=== PATIENT | male | born 1955 | race Caucasian/White ===

== ENCOUNTER 2022-03-04 16:11 | Inpatient (IN) | payer OTHER ==
[~2022-03-04] VITALS: Ht 175.2 cm; Wt 76.2 kg
[2022-03-04 16:11] VITALS: BP 148/96
[~2022-03-04 16:11] MED LIST: BUSPAR5 MG PO; MIRTAZAPINE15 M2 PO; NATURE'S BLEND F1 MG PO; NATURE'S BLEND100 M2 PO; RIVASTIGMINE1 EACH T; SERTRALINE HYDR25 MG PO; TIZANIDINE HCL4 MG PO
[2022-03-04 17:05] LABS: BASO # 0.1 10*3/uL (0.0-0.1); EOS # 0.2 10*3/uL (0.0-0.4); EOS % 1.7 % (1.0-4.0); HEMATOCRIT 43.6 % (42.0-52.0); LYMPH # 1.1 10*3/uL (1.3-4.4); LYMPH % 12.2 % (27.0-41.0); MEAN CELL VOLUME 100.5 fl (80.0-94.0); MEAN CORPUSCULAR HGB 33.2 pg (27.0-31.0); MEAN PLATELET VOLUME 9.9 fl (9.6-12.3); MONO # 0.7 10*3/uL (0.1-1.0); MONO % 7.8 % (3.0-9.0); NEUT # 7.1 10*3/uL (2.3-7.9); NEUT % 76.8 % (47.0-73.0); PLATELET COUNT AUTOMATED 209 10*3/uL (130-400); RED BLOOD COUNT 4.34 10*6/uL (4.50-5.90); RED CELL DISTRI WIDTH 15.1 % (0-14.5); WHITE BLOOD COUNT 9.3 10*3/uL (4.8-10.8)
[2022-03-04 17:15] LABS: ACT PARTIAL THROMBO TIME 28.3 SECONDS (20.0-32.1)
[2022-03-04 17:25] LABS: ALKALINE PHOSPHATASE 70 U/L (45-117); BUN 5 mg/dl (7-24); CHLORIDE 108 mmol/L (98-107); CREATININE 0.65 mg/dL (0.70-1.30); LIPASE 211 U/L (73-393); POTASSIUM 3.8 mmol/L (3.5-5.1); SGOT/AST 38 IU/L (3-35); SGPT/ALT 37 U/L (12-78); SODIUM 139 mmol/L (136-145); TOTAL PROTEIN 6.5 gm/dL (6.4-8.2)
[2022-03-04 17:27] LABS: ETHYL ALCOHOL < 3.0 mg/dl (<3)
[2022-03-04 17:30] VITALS: BP 143/94
[2022-03-04 18:26] VITALS: BP 146/87
[2022-03-04 19:07] LABS: BILIRUBIN Negative (Negative); BLOOD Negative (Negative); CLARITY Clear (Clear); COLOR Yellow (Yellow); GLUCOSE Negative (Negative); KETONE 3+ (Negative); LEUKO ESTERASE Negative (Negative); NITRITE Negative (Negative); PH 7.5 (4.5-8.0); SPECIFIC GRAVITY 1.015 (1.001-1.030)
[2022-03-04 19:16] LABS: URINE AMPHETAMINES < 1000 (1000ng/ml); URINE BARBITURATES < 200 (200ng/ml); URINE BENZODIAZEPINES < 200 (200ng/ml); URINE CANNABINOIDS (THC) < 50 (50ng/ml); URINE COCAINE < 300 (300ng/ml); URINE METHADONE < 300 (300ng/ml); URINE OPIATES < 300 (300ng/ml)
[2022-03-04 19:17] LABS: URINE PHENCYCLIDINE < 25 (25ng/ml)
[2022-03-04 19:30] LABS: BACTERIA TRACE; WBC 0-2 wbc/hpf (0-5)
[2022-03-04 22:30] VITALS: BP 151/85
[2022-03-05] VITALS: BP 155/97
[2022-03-05 06:16] LABS: BUN 5 mg/dl (7-24); CHLORIDE 107 mmol/L (98-107); CREATININE 0.89 mg/dL (0.70-1.30); POTASSIUM 3.5 mmol/L (3.5-5.1); SGOT/AST 38 IU/L (3-35); SGPT/ALT 38 U/L (12-78); SODIUM 140 mmol/L (136-145)
[2022-03-05 06:24] LABS: ALKALINE PHOSPHATASE 71 U/L (45-117); BASO # 0.1 10*3/uL (0.0-0.1); BASO % 0.9 % (0.0-1.0); EOS # 0.2 10*3/uL (0.0-0.4); EOS % 2.4 % (1.0-4.0); FREE T4 1.01 ng/dl (0.76-1.46); LYMPH # 1.4 10*3/uL (1.3-4.4); LYMPH % 18.2 % (27.0-41.0); MEAN CELL VOLUME 98.7 fl (80.0-94.0); MEAN CORPUSCULAR HGB 32.7 pg (27.0-31.0); MEAN CORPUSCULAR HGB CONC 33.2 g/dl (33.0-37.0); MEAN PLATELET VOLUME 10.2 fl (9.6-12.3); MONO # 0.6 10*3/uL (0.1-1.0); NEUT # 5.3 10*3/uL (2.3-7.9); NEUT % 69.8 % (47.0-73.0); PLATELET COUNT AUTOMATED 206 10*3/uL (130-400); RED BLOOD COUNT 4.46 10*6/uL (4.50-5.90); RED CELL DISTRI WIDTH 15.1 % (0-14.5); WHITE BLOOD COUNT 7.6 10*3/uL (4.8-10.8)
[2022-03-05 08:00] VITALS: BP 154/86
[2022-03-05 12:01] VITALS: BP 146/90
[2022-03-05 20:00] VITALS: BP 148/89
[2022-03-06] VITALS: BP 156/90
[2022-03-06 08:00] VITALS: BP 144/91
[2022-03-06 16:00] VITALS: BP 133/88
[2022-03-07] VITALS: BP 134/95
[2022-03-07 08:00] VITALS: BP 123/82
[2022-03-07 12:00] VITALS: BP 122/88
[2022-03-07 16:00] VITALS: BP 133/93
[2022-03-07 20:00] VITALS: BP 136/83
[2022-03-08] VITALS: BP 112/70
[2022-03-08 05:26] LABS: BUN 7 mg/dl (7-24); CHLORIDE 108 mmol/L (98-107); CREATININE 0.74 mg/dL (0.70-1.30); POTASSIUM 3.3 mmol/L (3.5-5.1); SODIUM 139 mmol/L (136-145)
[2022-03-08 06:03] LABS: BASO # 0.1 10*3/uL (0.0-0.1); BASO % 1.8 % (0.0-1.0); EOS # 0.3 10*3/uL (0.0-0.4); EOS % 4.3 % (1.0-4.0); HEMATOCRIT 45.4 % (42.0-52.0); LYMPH # 1.6 10*3/uL (1.3-4.4); LYMPH % 25.7 % (27.0-41.0); MEAN CELL VOLUME 98.7 fl (80.0-94.0); MEAN CORPUSCULAR HGB 32.6 pg (27.0-31.0); MEAN PLATELET VOLUME 10.6 fl (9.6-12.3); MONO # 0.8 10*3/uL (0.1-1.0); MONO % 12.3 % (3.0-9.0); NEUT # 3.3 10*3/uL (2.3-7.9); NEUT % 54.9 % (47.0-73.0); PLATELET COUNT AUTOMATED 232 10*3/uL (130-400); RED CELL DISTRI WIDTH 14.9 % (0-14.5); WHITE BLOOD COUNT 6.1 10*3/uL (4.8-10.8)
[2022-03-08 08:00] VITALS: BP 127/77
== END 2022-03-08 11:25 | DRG 775 ==
LOC: ED 16:11 → EDHOLD 18:33 → 4E 18:33 → EDHOLD 20:32 → 4E 22:03
PROVIDERS: Emergency Medicine; Internal Medicine; ADMIT Family Medicine; ATTEND Family Medicine
DX: F10.239 Alcohol dependence with withdrawal, unspecified (principal); G93.41 Metabolic encephalopathy; C61 Malignant neoplasm of prostate; E83.39 Other disorders of phosphorus metabolism; R74.01 Elevation of levels of liver transaminase levels; D75.89 Other specified diseases of blood and blood-forming organs; Y90.9 Presence of alcohol in blood, level not specified; F32.9 Major depressive disorder, single episode, unspecified